=== PATIENT | female | born 1955 | race African-American/Black ===

== ENCOUNTER → 2023-01-28 | Day surgery (SDC) | payer BC | END | disposition home or self-care (01) | LOC: JRADUS-SUR 08:08 | PROVIDERS: ATTEND Family Medicine | PROC: 0H9T3ZX Drainage of Right Breast, Percutaneous Approach, Diagnostic (ICD-10-PCS; principal; 2023-01-28) | DX: N63.31 Unspecified lump in axillary tail of the right breast (principal) | CPT/HCPCS: 19083; 87899; A4648 ==